=== PATIENT | male | born 1975 | race African-American/Black ===

== ENCOUNTER 2018-12-27 17:52 | Emergency (ER) | payer SELFPAY ==
[~2018-12-27] VITALS: Ht 172.7 cm; Wt 59.1 kg
[2018-12-27] MEDS ORDERED: IBUPROFEN 600 MG TABLET PO ONE (19:45)
[2018-12-27 19:50] VITALS: BP 109/78
== END 2018-12-27 20:06 | disposition home or self-care (01) ==
LOC: EMS 17:53
DX: S80.02XA Contusion of left knee, initial encounter (principal); F17.200 Nicotine dependence, unspecified, uncomplicated; V43.62XA Car passenger injured in collision with other type car in traffic accident, initial encounter; Y93.89 Activity, other specified; Y92.89 Other specified places as the place of occurrence of the external cause; Y99.8 Other external cause status